=== PATIENT | female | born 1990 | race Caucasian/White ===

== ENCOUNTER 2019-09-23 09:52 | Emergency (ER) | payer BC ==
[2019-09-23 10:41] LABS: #Lymphocytes 0.6 thou/uL (1.20-3.40); #Monocytes 0.7 thou/uL (0.11-0.59); #Neutrophils 4.6 thou/uL (1.40-6.50); %Basophils 0.2 % (0.0-1.0); %Eosinophils 0.7 % (0.0-10.0); %Lymphocytes 9.6 % (21.0-51.0); %Monocytes 11.4 % (0.0-10.0); %Neutrophils 78.1 % (42.0-75.0); Hemoglobin 14.2 g/dL (12.0-16.0); Mean Corpuscular HGB CONC 34.7 g/dL (32.0-36.0); Mean Corpuscular Hemoglobin 33.6 pg (27.0-31.0); Mean Platelet Volume 7.7 fL (7.4-10.4); Platelet Count 214 thou/uL (130-400); RBC Distribution Width 10.9 % (11.5-14.5); Red Blood Cell (RBC) Count 4.22 mill/uL (4.20-5.40); White Blood Cell (WBC) Count 5.8 thou/uL (4.8-10.8)
[2019-09-23 10:58] LABS: ALT (SGPT) 16 U/L (8-55); AST (SGOT) 16 U/L (5-34); Albumin 4.5 g/dL (3.5-5.0); Alkaline Phosphatase 66 U/L (40-110); Anion Gap 13 mmol/L (10-20); BUN (Urea Nitrogen) 9 mg/dL (7.0-18.7); Bilirubin, Total 0.6 mg/dL (0.2-1.2); Calc. Creatinine Clearance 0 mL/min (70-130); Carbon Dioxide 26 mmol/L (22-29); Chloride 101 mmol/L (98-107); Estimated GFR-MDRD 68; Globulin 2.4 g/dL (2.4-3.5); Glucose 90 mg/dL (70-105); Potassium 3.7 mmol/L (3.5-5.1); Protein, Total 6.9 g/dL (6.0-8.3); Sodium 136 mmol/L (136-145)
[2019-09-23 11:45] LABS: Bilirubin Negative (Negative); Blood, Urine Negative (Negative); Clarity Clear (Clear); Glucose, Urine (Dipstick) Normal (Negative); Leukocyte Negative Leu/uL (Negative); Nitrite Negative (Negative); Protein, Urine (Dipstick) Negative (Neg-Trace); Urobilinogen Normal mg/dL (Less than 2)
[2019-09-23 11:48] LABS: Pregnancy Test - Urine (BHCG) Negative (Negative); Pregu Control Background? CLEAR/WHITE (CLR/WHITE); Pregu Control Bar Appear? YES (CONTROL BAR); Specific Gravity 1.008 (1.002-1.036)
[2019-09-23] MEDS ORDERED: Dexamethasone 10 MG/ML VIAL ONE (12:04)
== END 2019-09-23 12:12 | disposition home or self-care (01) ==
LOC: ERS 09:52
DX: R42 Dizziness and giddiness (principal); J06.9 Acute upper respiratory infection, unspecified
CPT/HCPCS: 80053; 81003; 81025; 85025; 96361; 96374; J1100

== ENCOUNTER 2020-10-21 09:04 | Outpatient (CLI) | payer BC ==
[2020-10-21 18:28] LABS: SARS-CoV-2 PCR by NAA Not Detected (NotDetected)
== END 2020-10-21 09:05 | disposition home or self-care (01) ==
LOC: LABBT 09:04
PROVIDERS: ATTEND Obstetrics & Gynecology
DX: Z20.822 Contact with and (suspected) exposure to COVID-19 (principal)
CPT/HCPCS: 87635; U0003; U0005

== ENCOUNTER 2020-10-24 06:27 | Day surgery (SDC) | payer BC ==
[2020-10-24 06:50] VITALS: BMI 28.1
[2020-10-24 06:52] VITALS: BP 113/70; TEMP 97.4
[2020-10-24 08:00] LABS: Mean Corpuscular HGB CONC 34.6 g/dL (32.0-36.0); Mean Corpuscular Hemoglobin 34.1 pg (27.0-31.0); Mean Corpuscular Volume 98.5 fL (78.0-98.0); Platelet Count 168 thou/uL (130-400); RBC Distribution Width 11.8 % (11.5-14.5); Red Blood Cell (RBC) Count 3.53 mill/uL (4.20-5.40); White Blood Cell (WBC) Count 6.8 thou/uL (4.8-10.8)
[2020-10-24] MEDS ORDERED: Terbutaline Sulfate 1 MG/ML VIAL ONE (08:03)
--- NOTE | 2020-10-24 08:11 | PDOC.LDHP ---
Labor and Delivery H&P Chief complaint: other (Presents scheduled for ECV) HPI: Pt presents scheduled for planned ECV for persistent breech presentation. Risk and benefits of ECV vs 1CS @ 39 w expectant management prior have been explained in detail. Current gestational age (weeks): 37 Due date: 11/12/20 Grav: 1 OB History Details: uncomplicated Current complications: breech Abnormal US findings: Yes (sonu breech) Past Medical History: allergic rhinitis, GERD Current medications: pre- vitamins, other (flonase,) Previous surgical history: other (tonsil) Allergies/Adverse Reactions: Allergies Allergy/AdvReac Type Severity Reaction Status Date / Time No Known Allergies Allergy Verified 10/24/20 06:58 Social history: none - Physical Exam Vital signs reviewed and normal: yes General: NAD Lungs: nonlabored breathing Abdomen: gravid Extremeties: no edema FHT: category 1 - OB Labs RH: positive Antibody Screen: negative HIV: negative RPR: negative HEPSAg: negative 1 hour GCT: negative GBS: negative Urine drug screen: negative Rubella: immune - Assessment Breech presentation @ 37 weeks - Plan Plan: admit to L&D, informed consent obtained, other -: 30 yo G1 @ 37.2 w persistent breech, desires ECV. Aware of risk and benefits which include /maternal injury, ROM, distress/NRFHT, labor and need for emergent CS. Bedside US w normal EDIN, sonu breech with head at RUQ and buttock at LLQ. FHT reassuring. Terbutaline ordered.
[2020-10-24] MEDS ORDERED: Terbutaline Sulfate 1 MG/ML VIAL SC SCH (08:15)
[2020-10-24] MEDS ORDERED: Lactated Ringer's 1,000 ML IV SCH (08:15)
[2020-10-24 08:33] LABS: Syphilis Antibody Nonreactive (Nonreactive); Syphilis Antibody Index 0.03 S/CO (<1.00 Non-Reactive)
[2020-10-24 08:34] LABS: HBSAg Index 0.18 S/CO (0-0.99); Hep B Surf Ag Non-Reactive S/CO (NonReactive)
--- NOTE | 2020-10-24 14:37 | OP ---
DATE OF PROCEDURE: 10/24/2020 PROCEDURE PERFORMED: External cephalic version. PREOPERATIVE DIAGNOSES: 1. Term at 37 weeks. 2. Breech presentation. 3. Desires external cephalic version. POSTOPERATIVE DIAGNOSES: 1. Term at 37 weeks. 2. Breech presentation. 3. Desires external cephalic version. PROCEDURE PERFORMED: External cephalic version, ultrasound-guided. Procedure performed by Dr. Austen Ryan with assistance of Dr. John Chavarria. ANESTHESIA: None. COMPLICATIONS: None. PROCEDURE IN DETAILS: Tressa was admitted to Labor and Delivery for planned external cephalic version. She underwent full counseling of the risks and benefits of external cephalic version versus expectant management until 39 weeks versus scheduled primary section for breech presentation. The patient desired trial of external cephalic version. She presented to the hospital and IV was started and admission labs were collected. A bedside ultrasound was performed after a reactive NST that showed the fetus in a complete breech presentation. A normal EDIN was noted. 0.25 mg of terbutaline were administered subcutaneously. Approximately 15 minutes later, an ultrasound-guided external cephalic version was performed. Mineral oil was applied to the abdomen. With gentle manipulation of the head, a backwards roll was completed without complication. Immediately after the infant was palpated in the cephalic position, ultrasound confirmed normal heart rate and the external Doppler was applied to the maternal abdomen. She was then observed in Labor and Delivery with reassuring heart tracing. No signs of labor and no leakage of fluid. The patient was later discharged home in good condition with an induction of labor planned at 40 weeks with no complications. The patient tolerated the procedure well. Postprocedure instructions were given. Job ID: [id number]
== END 2020-10-24 10:06 | disposition home health service (06) ==
LOC: L&D/OP 06:27
PROVIDERS: ATTEND Obstetrics & Gynecology
PROC: 10S0XZZ Reposition Products of Conception, External Approach (ICD-10-PCS; principal; 2020-10-24)
DX: O32.1XX0 Maternal care for breech presentation, not applicable or unspecified (principal); O99.513 Diseases of the respiratory system complicating pregnancy, third trimester; J30.2 Other seasonal allergic rhinitis; Z3A.37 37 weeks gestation of pregnancy; Z79.899 Other long term (current) drug therapy
CPT/HCPCS: 36415; 59412; 76815; 85027; 86780; 86850; 86900; 86901; 87340; 96360; 96361; 96372; 99282; J3105